=== PATIENT | female | born 1955 | race Caucasian/White ===

== ENCOUNTER → 2019-05-22 | Outpatient (CLI) | payer OTHER ==
--- NOTE | 2019-05-22 16:04 | RAD ---
EXAM: 3 views right shoulder DATE: 05/22/2019 12:00 AM INDICATION: Right shoulder pain COMPARISON: No Prior FINDINGS: No evidence of acute fracture or dislocation. Right glenohumeral joint osteoarthritis. Humeral head is not high riding. AC joint degenerative changes are seen. Right lung opacities likely atelectasis or consolidation. IMPRESSION: Right glenohumeral joint osteoarthritis. No evidence of acute fracture or dislocation. Nonspecific right lung opacities are partially profiled, possibly developing consolidation or atelectasis. Electronically signed by: Vaughn Fierro MD (05/22/2019 4:01 PM) [id number]
== END ==
LOC: RAD 12:16
PROVIDERS: ATTEND Orthopaedic Surgery Sports Medicine
DX: M19.011 Primary osteoarthritis, right shoulder (principal)
CPT/HCPCS: 73030